=== PATIENT | male | born 1945 | race Caucasian/White ===

== ENCOUNTER 2019-12-11 12:00 | Emergency (ER) | payer MEDICARE, MEDICAID ==
[~2019-12-11] VITALS: Ht 170.2 cm; Wt 73.1 kg
[2019-12-11 12:20] VITALS: BP 136/80
--- NOTE | 2019-12-11 12:27 | NUR ---
PT HAS NO PHYSICAL COMPLAINTS OR CONCERNS, NO S/S.
== END 2019-12-11 13:04 | disposition home or self-care (01) ==
LOC: ED 12:20
DX: E78.5 Hyperlipidemia, unspecified (principal); Z76.0 Encounter for issue of repeat prescription; F17.200 Nicotine dependence, unspecified, uncomplicated; Z90.49 Acquired absence of other specified parts of digestive tract
CPT/HCPCS: 99283